=== PATIENT | female | born 2000 | race Caucasian/White ===

== ENCOUNTER 2018-06-17 19:43 | Outpatient (REF) | payer BC, SELFPAY | END 2018-06-17 19:44 | LOC: NCHCN 19:43 | PROVIDERS: PCP Nurse Practitioner Family; Visit Provider Physician Assistant Medical | DX: N89.8 Other specified noninflammatory disorders of vagina (principal) | CPT/HCPCS: 87480; 87510; 87660 ==

== ENCOUNTER 2021-10-17 16:44 | Outpatient (REF) | payer BC, SELFPAY ==
[2021-10-19 13:56] LABS: COVID-19 RT-PCR UVMMC Result Negative (Negative)
== END 2021-10-17 16:45 | disposition home or self-care (01) ==
LOC: NCHCN 16:44
PROVIDERS: PCP Nurse Practitioner Family; Visit Provider Nurse Practitioner Family
DX: Z20.822 Contact with and (suspected) exposure to COVID-19 (principal)
CPT/HCPCS: U0003